=== PATIENT | male | born 1935 | race Caucasian/White ===

== ENCOUNTER 2016-12-29 10:44 | Inpatient (IN) | payer OTHER ==
[~2016-12-29] VITALS: Ht 180.3 cm; Wt 65.8 kg
--- NOTE | ~2016-12-29 | EKG ---
[address] [place] [address] ELECTROCARDIOGRAM REPORT Name: MANDIE HILL Room #: 543-P ADM IN M.R.#: [id number] Admission: 12/29/16 Attend Phys: Clark Faulkner MD Discharge: Date of : 37 Report #: [id number] THIS REPORT FOR: //name// [facility] Test Date: 2016-12-30 Test Time: 08:04:01 Pat Name: MANDIE HILL Department: Room: 543 P Gender: M Project Controls Specialist: Vernon MOE : 1935 Requested By: Dorys Carvalho Order Number: [id number] MD: Augustine Diaz Measurements Intervals [place] Rate: 53 P: 66 ND: 184 QRS: 65 QRSD: 110 T: QT: 461 QTc: 433 Interpretive Statements Sinus rhythm LVH with IVCD and secondary repol abnrm Anterior ST elevation, probably due to LVH Compared to ECG 03/28/2014 10:42:06 Intraventricular conduction delay now present ST (T wave) deviation now present Sinus bradycardia no longer present Sinus arrhythmia no longer present Myocardial infarct finding no longer present Electronically Signed On 12-30-2016 8:56:39 CDT by Augustine Diaz [email or web address] <ELECTRONICALLY SIGNED> By: Augustine Diaz MD 12/30/1656 3 3 Augustine Diaz MD /EPI
--- NOTE | ~2016-12-29 | 2DMMODE ---
[facility] [address] [place] [address] 2 D/M-MODE ECHOCARDIOGRAM Name: MANDIE HILL Room #: 543-P ADM IN .R.#: [id number] Admission: 12/29/16 Attend Phys: Miguel Han Discharge: Date of : 37 Date of Service: 12/31/16 1025 Report #: [id number] THIS REPORT FOR: //name// APPROVED REPORT Study performed: 12/31/2016 09:32:28 EXAM: Comprehensive 2D, Doppler, and color-flow Echocardiogram Patient Location: Echo lab Room #: [facility] Status: routine Other Information Study Quality: Good Indications Chest Pain Hx: CABG, AVR, HTN 2D Dimensions RVDd: 41.21 mm LVEF(%): 73.06 (>50%) IVSd: 12.27 (7-11mm) LVOT Diam: 18.76 (18-24mm) LVDd: 47.21 mm PWd: 12.20 (7-11mm) Ascending Ao: 36.99 (22-36mm) LVDs: 27.34 (25-40mm) Aortic Root: 29.77 mm Blancas's LVEF: 73.06 % Volumes Left Atrial Volume (Systole) Single Plane 4CH: 59.12 mL Single Plane 2CH: 61.16 mL LA ESV Index: 36.00 mL/m2 Aortic Valve AoV Peak Man.: 3.96 m/s AO Peak Gr.: 62.87 mmHg LVOT Max P.06 mmHg AO Mean Gr.: 38.26 mmHg AO V2 Mean: 2.96 m/s LVOT Max V: 2.00 m/s AO V2 VTI: 88.71 cm YOSELIN Vmax: 1.40 cm2 Mitral Valve E/A Ratio: 0.9 MV Decel. Time: 356.88 ms MV E Max Man.: 0.97 m/s [facility] [place] [address] 2 D/M-MODE ECHOCARDIOGRAM Name: MANDIE HILL Room #: 543-P [facility] IN ..#: [id number] Admission: 12/29/16 Attend Phys: Miguel Han Discharge: Date of : 37 Date of Service: 12/31/16 1025 Report #: [id number] MV A Man.: 1.05 m/s MV PHT: 103.50 ms IVRT: 78.43 ms Pulmonary Valve PV Peak Man.: 1.47 m/s PV Peak Gr.: 8.69 mmHg Pulmonary Vein P Vein S: 0.74 m/s P Vein D: 0.51 m/s P Vein S/D Ratio: 1.45 Tricuspid Valve TR Peak Man.: 3.04 m/s RAP Estimate: 5.00 mmHg TR Peak Gr.: 36.99 mmHg PA Pressure: 42.00 mmHg Left Ventricle The left ventricle is normal size. There is normal LV segmental wall motion. Mild concentric left ventricular hypertrophy. Left ventricular systolic function is normal. LVEF is 55-60%. Unable to assess Right Ventricle The right ventricle is normal size. The right ventricular systolic function is normal. Atria Left atrium is mildly dilated. Right atrium is mildly dilated. Aortic Valve Mechanical aortic valve is present. Size and manufacture unknown. Peak velcoity of 4.0m/s with a peak pressure gradient of 63mmHg and a mean of 38mmHg. Mild aortic regurgitation. Mitral Valve Probable mitral annuloplasty ring present Trace to mild mitral regurgitation. No evidence of mitral valve stenosis. Tricuspid Valve The tricuspid valve is normal in structure. There is mild tricuspid regurgitation. The right atrial pressure is estimated at 5 mmHg. There is moderate pulmonary hypertension with an estimated PAP of 42mmHg. [facility] [address] [place] [address] 2 D/M-MODE ECHOCARDIOGRAM Name: MANDIE HILL Room #: 543-P [facility] IN [facility]#: [id number] Admission: 12/29/16 Attend Phys: Miguel Han Discharge: Date of : 37 Date of Service: 12/31/16 1025 Report #: [id number] Pulmonic Valve The pulmonary valve is normal in structure. Trace pulmonic regurgitation. Great Vessels The aortic root is normal in size. The ascending aorta is at the upper limits of normal. IVC is normal in size and collapses >50% with inspiration. Pericardium There is no pericardial effusion. <Conclusion> Left ventricular systolic function is normal. There is normal LV segmental wall motion. LVEF 55-60%. Mechanical aortic valve is present. Size and manufacture unknown. Peak velcoity of 4.0m/s with a peak pressure gradient of 63mmHg and a mean of 38mmHg. Mild aortic regurgitation. 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 Trace to mild mitral regurgitation. Pulmonary artery pressure of 43mmHg There is no pericardial effusion. <ELECTRONICALLY SIGNED> By: Gurmeet Cantu MD, FACC 12/31/16 1025 1025 1025 Gurmeet Cantu MD, FACC /INF
[~2016-12-29 10:44] MED LIST: APAP500 PO; ASPIR 8181 MG PO; B-121000 MC2 PO; CALCIUM 500 +1 EAC4 PO; CALICUM 500+D1 EACH PO; CENTRUM SILVER1 EAC4 PO; COLACE100 MG PO; COUMADIN 5 MG TA5 M1 PO; DIOVAN160 MG PO; FISH OIL 1,001000 M2 PO; LEVOTHYROXIN0.025 MG PO; LIPITOR20 MG PO; NEURONTIN 300300 M1 PO; NIASPAN 500 MG500 M1 PO; NORVASC5 MG PO; PERCOCET 5-3251 EACH PO; PHILLIPS' COLO1 EACH PO; PROSCAR 5MG TABL5 MG PO; TRAZODONE HCL50 MG PO; VITRON-C TABLE1 EAC1 PO
[2016-12-29 10:45] VITALS: BP 116/58
[2016-12-29 11:20] LABS: HEMATOCRIT 30.5 % (42.0-52.0); HEMOGLOBIN 10.5 gm/dL (14.0-18.0); MCH 32.3 pg (26.0-34.0); MCHC 34.3 g/dL (28.0-37.0); MCV 94.2 fL (80.0-100.0); PLATELET COUNT 192 thou/uL (150-400); RBC 3.24 mil/uL (4.50-6.00); RDW 14.2 % (10.5-14.5); WBC 4.4 thou/uL (4.0-11.0)
[2016-12-29 11:22] LABS: MANUAL DIFF YES
[2016-12-29 11:28] LABS: CREATININE 1.1 mg/dL (0.7-1.3); POTASSIUM 4.4 mmol/L (3.5-5.1)
[2016-12-29 11:36] LABS: INR 2.1; PROTIME 21.7 Seconds (9.3-11.4)
[2016-12-29 11:38] LABS: APTT 90.7 Seconds (24.5-32.8)
[2016-12-29 11:59] LABS: ABSOLUTE NEUTROPHILS 3.3 thou/uL (1.4-8.2); TOTAL CELL COUNT 100
[2016-12-29 12:00] LABS: ANISOCYTOSIS SLIGHT
[2016-12-29 13:12] VITALS: BP 140/62
[2016-12-29 13:20] VITALS: BP 175/59
[2016-12-29 13:35] VITALS: BP 175/59
[2016-12-29 19:05] VITALS: BP 136/59
[2016-12-29 19:52] LABS: INR 2.2
[2016-12-29 23:34] VITALS: BP 141/60
[2016-12-30 03:44] VITALS: BP 129/60
[2016-12-30 05:38] LABS: PROTIME 20.7 Seconds (9.3-11.4)
[2016-12-30 07:05] VITALS: BP 114/57
[2016-12-30 16:59] VITALS: BP 120/65
[2016-12-30 19:55] VITALS: BP 114/52
[2016-12-31 03:45] VITALS: BP 110/58
[2016-12-31 04:41] VITALS: BP 147/68
[2016-12-31 06:17] LABS: INR 1.6; PROTIME 16.3 Seconds (9.3-11.4)
[2016-12-31 07:16] VITALS: BP 146/57
[2016-12-31] MEDS ORDERED: HYDROCODON-ACE1 EAC7 PO (15:46)
[2016-12-31 16:12] VITALS: BP 146/57
== END 2016-12-31 17:49 | disposition home or self-care (01) | DRG 565 ==
LOC: ER 10:44 → 5S 11:47 → EROBS 11:47 → 5S 12:20
PROVIDERS: Emergency Medicine; Nurse Practitioner Gerontology
PROC: 0S9C3ZZ Drainage of Right Knee Joint, Percutaneous Approach (ICD-10-PCS; principal; 2016-12-30)
DX: M25.461 Effusion, right knee (principal); M25.061 Hemarthrosis, right knee; M17.11 Unilateral primary osteoarthritis, right knee; I10 Essential (primary) hypertension; I25.10 Atherosclerotic heart disease of native coronary artery without angina pectoris; D64.9 Anemia, unspecified; R00.1 Bradycardia, unspecified; Z95.1 Presence of aortocoronary bypass graft; Z95.2 Presence of prosthetic heart valve; Z90.49 Acquired absence of other specified parts of digestive tract; Z79.01 Long term (current) use of anticoagulants; Z79.899 Other long term (current) drug therapy
CPT/HCPCS: 10086

== ENCOUNTER 2017-03-24 16:23 | Inpatient (IN) | payer OTHER ==
[~2017-03-24] VITALS: Ht 180.3 cm; Wt 64.4 kg
--- NOTE | ~2017-03-24 | HC ---
[facility] [place] [address] CONSULTATION Name: MANDIE HILL Nikia Room #: 408-P [facility] IN ..#: [id number] Admission: 03/24/17 Attend Phys: Adams Shaikh MD Discharge: Date of : 36 Report #: [id number] THIS REPORT FOR: //name// CC: Dread Shaikh DATE OF SERVICE: 03/25/2017 This 81-year-old gentleman is admitted with right knee pain with findings consistent with an acute traumatic hemarthrosis. I know him from previous visits and know that he has chronic degenerative arthritis involving the right knee. He is also on chronic Coumadin therapy. We visited a number of months ago with sudden knee effusion and he was found to have a hemarthrosis, which required several aspirations for complete resolution. His symptoms improved with cortisone injection. He returned to his home where he has been living independently with assistance from his daughter. 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 He did not have any falls or injuries, but later that evening experienced increased knee discomfort followed by swelling. This became more severe and he was admitted to the hospital. Today, there is an obvious right knee effusion with tenderness, but no significant redness or warmth. There is no sign of infection. There is no evidence of instability. The knee moves well, but is uncomfortable. Findings are certainly consistent with an acute hemarthrosis. I think this is simply a new knee sprain with anticoagulation-related bleeding and hemarthrosis. I elected to go ahead with aspiration. This was accomplished, but with limited return as there seemed to be significant clotting of the hemarthrosis fluid. I removed only about 20 mL and I suspect there is another 40-60 mL in the knee joint. After removing as much as I could, I did leave 80 mg of Depo-Medrol and 5 mL of lidocaine in the joint as this was helpful with the same situation in the past. At this point, I am uncertain if this limited aspiration will be sufficient to relieve his symptoms. I think we will monitor him overnight. If he should have significant ongoing pain then a more aggressive lavage in the operating room under sedation might be necessary. We will leave him n.p.o. after midnight and reassess his progress in the morning. If his symptoms will allow, then he could be discharged home and I can simply see him in the office next week for a followup evaluation and further aspiration if needed. If his symptoms will not allow, then we may reconsider the option of an OR debridement as needed. <ELECTRONICALLY SIGNED> By: Diego Solo MD 03/27/17 1105 1740 2235 Diego Solo MD /nt
[~2017-03-24 16:23] MED LIST changes: +HYDROCODON-ACE1 EAC7 PO
[2017-03-24 16:26] VITALS: BP 147/63
[2017-03-24] MEDS ORDERED: NORVASC2.5 MG PO (16:47)
[2017-03-24] MEDS ORDERED: BAYER CHEWABLE81 MG PO (16:52)
[2017-03-24] MEDS ORDERED: LOPERAMIDE 2 MG2 M1 PO (16:53)
[2017-03-24] MEDS ORDERED: COUMADIN 5 MG TA5 M1 PO ×2 (16:56→16:57)
[2017-03-24] MEDS ORDERED: FLOMAX0.4 MG PO (17:01)
[2017-03-24 18:30] LABS: ABSOLUTE NEUTROPHILS 3.8 thou/uL (1.4-8.2); BASOPHILS 0.4 % (0.0-2.0); EOSINOPHILS 0.9 % (0.0-3.0); HEMATOCRIT 30.2 % (42.0-52.0); HEMOGLOBIN 10.5 gm/dL (14.0-18.0); LYMPHOCYTES 14.3 % (24.0-44.0); MCH 32.6 pg (26.0-34.0); MCHC 34.7 g/dL (28.0-37.0); MONOCYTES 10.7 % (1.0-8.0); PLATELET COUNT 144 thou/uL (150-400); POLYS 73.7 % (36.0-66.0); RBC 3.21 mil/uL (4.50-6.00); RDW 15.8 % (10.5-14.5); WBC 5.2 thou/uL (4.0-11.0)
[2017-03-24 18:32] LABS: MANUAL DIFF NO
[2017-03-24 18:40] LABS: INR 1.9; PROTIME 19.4 Seconds (9.3-11.4)
[2017-03-24 18:50] LABS: CALCIUM 7.8 mg/dL (8.5-10.1); CREATININE 0.8 mg/dL (0.7-1.3); POTASSIUM 4.6 mmol/L (3.5-5.1)
[2017-03-24 18:56] LABS: ALBUMIN 3.2 g/dL (3.4-5.0); TOTAL BILIRUBIN 0.6 mg/dL (<0.1-1.0); TOTAL PROTEIN 6.9 g/dL (6.4-8.2)
[2017-03-24 21:01] VITALS: BP 148/71
[2017-03-24 21:08] VITALS: BP 148/71
[2017-03-24 21:41] VITALS: BP 154/71
[2017-03-25 04:00] VITALS: BP 112/46
[2017-03-25 05:10] LABS: HEMATOCRIT 27.1 % (42.0-52.0); HEMOGLOBIN 9.1 gm/dL (14.0-18.0); MCH 31.9 pg (26.0-34.0); MCHC 33.7 g/dL (28.0-37.0); MCV 94.6 fL (80.0-100.0); RBC 2.86 mil/uL (4.50-6.00); RDW 15.8 % (10.5-14.5); WBC 5.4 thou/uL (4.0-11.0)
[2017-03-25 05:20] LABS: CALCIUM 8.6 mg/dL (8.5-10.1); POTASSIUM 4.2 mmol/L (3.5-5.1)
[2017-03-25 05:21] LABS: INR 1.7
[2017-03-25 08:00] VITALS: BP 123/51
[2017-03-25 16:00] VITALS: BP 110/51
[2017-03-25 20:14] VITALS: BP 136/68
[2017-03-25 22:15] VITALS: BP 128/68
[2017-03-26 04:43] VITALS: BP 133/72
[2017-03-26 08:00] VITALS: BP 125/69
[2017-03-26 10:09] VITALS: BP 114/58
[2017-03-26 16:45] VITALS: BP 93/51
[2017-03-26 20:00] VITALS: BP 111/44
[2017-03-27 04:00] VITALS: BP 136/50
[2017-03-27 06:21] LABS: INR 2.3; PROTIME 23.5 Seconds (9.3-11.4)
[2017-03-27 08:00] VITALS: BP 127/49
[2017-03-27 11:29] VITALS: BP 127/49
[2017-03-27] MEDS ORDERED: HYDROCODON-ACE1 EAC7 PO (12:10)
[2017-03-27 12:28] VITALS: BP 127/49
[2017-03-27 14:00] VITALS: BP 127/49
== END 2017-03-27 14:00 | disposition home health service (06) | DRG 565 ==
LOC: ER 16:23 → EROBS 20:48 → 4N 20:48
PROVIDERS: Hospitalist; Physician Assistant
DX: M25.461 Effusion, right knee (principal); M25.061 Hemarthrosis, right knee; I10 Essential (primary) hypertension; I25.10 Atherosclerotic heart disease of native coronary artery without angina pectoris; M17.11 Unilateral primary osteoarthritis, right knee; E78.5 Hyperlipidemia, unspecified; Z95.2 Presence of prosthetic heart valve; Z90.49 Acquired absence of other specified parts of digestive tract; Z95.1 Presence of aortocoronary bypass graft; Z79.899 Other long term (current) drug therapy; Z79.01 Long term (current) use of anticoagulants
CPT/HCPCS: 10091

== ENCOUNTER 2017-04-02 13:25 | Inpatient (IN) | payer OTHER ==
[~2017-04-02] VITALS: Ht 180.3 cm; Wt 66.7 kg
[~2017-04-02 13:25] MED LIST changes: +BAYER CHEWABLE81 MG PO; +FLOMAX0.4 MG PO; +LOPERAMIDE 2 MG2 M1 PO; +NORVASC2.5 MG PO
[2017-04-02 13:26] VITALS: BP 164/68
[2017-04-02 15:42] LABS: HEMATOCRIT 31.7 % (42.0-52.0); HEMOGLOBIN 10.7 gm/dL (14.0-18.0); MCH 31.5 pg (26.0-34.0); MCHC 33.6 g/dL (28.0-37.0); MCV 93.6 fL (80.0-100.0); PLATELET COUNT 187 thou/uL (150-400); RBC 3.39 mil/uL (4.50-6.00); RDW 15.2 % (10.5-14.5); WBC 6.4 thou/uL (4.0-11.0)
[2017-04-02 15:43] LABS: MANUAL DIFF YES
[2017-04-02 15:49] LABS: CREATININE 1.1 mg/dL (0.7-1.3); POTASSIUM 4.1 mmol/L (3.5-5.1)
[2017-04-02 15:58] LABS: INR 1.9; PROTIME 19.2 Seconds (9.3-11.4)
[2017-04-02 16:07] LABS: ABSOLUTE NEUTROPHILS 4.9 thou/uL (1.4-8.2); TOTAL CELL COUNT 100
[2017-04-02 17:51] VITALS: BP 125/60
[2017-04-02 18:18] VITALS: BP 125/60
[2017-04-02 21:34] VITALS: BP 141/61
[2017-04-03 04:30] VITALS: BP 131/64
[2017-04-03 04:41] LABS: HEMATOCRIT 26.8 % (42.0-52.0); HEMOGLOBIN 9.3 gm/dL (14.0-18.0); MCH 32.2 pg (26.0-34.0); MCHC 34.6 g/dL (28.0-37.0); MCV 93.1 fL (80.0-100.0); PLATELET COUNT 148 thou/uL (150-400); RBC 2.88 mil/uL (4.50-6.00); WBC 5.1 thou/uL (4.0-11.0)
[2017-04-03 04:52] LABS: MANUAL DIFF YES
[2017-04-03 04:57] LABS: CALCIUM 8.6 mg/dL (8.5-10.1)
[2017-04-03 05:29] LABS: ABSOLUTE NEUTROPHILS 3.5 thou/uL (1.4-8.2); METAMYELOCYTES 1 %; TOTAL CELL COUNT 100
[2017-04-03 13:17] VITALS: BP 131/64
== END 2017-04-03 15:20 | disposition home health service (06) | DRG 554 ==
LOC: ER 13:25 → EROBS 17:05 → 4N 18:19
PROVIDERS: Family Medicine; Physician Assistant
DX: M25.061 Hemarthrosis, right knee (principal); I10 Essential (primary) hypertension; D64.9 Anemia, unspecified; M17.0 Bilateral primary osteoarthritis of knee; Z95.1 Presence of aortocoronary bypass graft; Z90.49 Acquired absence of other specified parts of digestive tract; Z95.2 Presence of prosthetic heart valve; Z79.899 Other long term (current) drug therapy
CPT/HCPCS: 10091

== ENCOUNTER 2018-04-08 20:46 | Inpatient (IN) | payer OTHER ==
[~2018-04-08] VITALS: Ht 175.3 cm; Wt 58.8 kg
--- NOTE | ~2018-04-08 | H ---
[facility] [address] HISTORY AND PHYSICAL Name: MANDIE HILL Room #: 431-P ADM IN M.R.#: [id number] Admission: 04/09/18 Attend Phys: Wilton Tran MD Discharge: Date of : 36 Report #: [id number] THIS REPORT FOR: //name// CC: Wilton Canada Alisha DATE OF SERVICE: 04/09/2018 CHIEF COMPLAINT: Right knee pain. HISTORY OF PRESENT ILLNESS: The patient is a pleasant 82-year-old male who was admitted through the Emergency Department at [facility] with complaints of right knee pain and spasm. The patient reports that the pain began around noon yesterday. He denies any recent falls or injury to the knee, but states that he has been cleaning out his garage and has been more active in the last few days that he had been previously. ALLERGIES: No known drug allergies. MEDICATIONS: Colchicine, [place], Amoxil, finasteride, valsartan, atorvastatin, cyanocobalamin, fish oil, multivitamin, Tylenol, warfarin 5 mg tabs, trazodone, amlodipine, [employer] capsule, iron, Norvasc, Imodium, Flomax. PAST MEDICAL AND SURGICAL HISTORY: Significant for anemia, open heart surgery, heart valve replacement and bypass, appendectomy, hernia repair, hypertension, right knee pain 03/2017. SOCIAL HISTORY: The patient denies any tobacco, alcohol or drug abuse. PHYSICAL EXAMINATION: GENERAL: The patient is awake and alert, in no acute distress. VITAL SIGNS: Temperature 36.4, pulse 56, blood pressure 137/56, height 175 cm, weight 58 kilos. EXTREMITIES: Right lower extremity is neurovascularly intact. Calf is soft and nontender. There is a moderate knee effusion present. Tenderness to palpation medial and lateral joint lines. Pain with attempted passive range of motion of the knee. Passive range of motion is minus 20-60 degrees. IMAGING: Three views of the right knee performed on 04/08/2018 showed knee joint arthrosis with suprapatellar joint effusion and swelling. No acute fracture or dislocation. IMPRESSION: Right knee pain, hemarthrosis, osteoarthritis. PLAN: Discussed the patient's diagnosis and treatment options today. The patient reports that he has been seen several times in the past for right knee [address] [address] HISTORY AND PHYSICAL Name: MANDIE HILL Nikia Room #: 431-P [facility] IN ..#: [id number] Admission: 04/09/18 Attend Phys: Wilton Tran MD Discharge: Date of : 36 Report #: [id number] pain and swelling from Dr. Solo and passes received aspirations, which have provided significant improvement of his pain for a period of time. He has elected to proceed with right knee aspiration today. We discussed that with more persistent symptoms, I would have a followup on an outpatient basis with either myself or Dr. Solo. We also discussed that we could send the patient's fluid to the lab for analysis if it looked questionable. However, as he has had several aspirations of hemarthrosis in the past, I am suspicious that is probably what is causing his swelling today since he is also on chronic warfarin. With this knowledge, I discussed with the patient and we decided to hold off on sending the fluid if this looked like a normal hemarthrosis. PROCEDURE PERFORMED: After informed consent was given, the right knee was sterilely prepped with Betadine. 4 mL of 1% lidocaine was used for local anesthesia prior to the aspiration. An 18-gauge needle was used to aspirate the right knee. Approximately, 20 mL of sanguineous fluid was aspirated from the knee. This appears to be hemarthrosis. No cloudiness was noted. The patient tolerated the procedure poorly; due to the patient's motion during the bedside procedure, I was unable to completely aspirate the knee and some effusion remained at the end of the aspiration, but aspiration was discontinued due to the patient's pain. Following the aspiration, the patient's pain improved, although he does not notice much improvement of his pain following the procedure compared to before. We discussed that with more persistent symptoms, I would like to have him follow up with Dr. Solo on an outpatient basis sometime next week. We discussed that an additional aspiration could be attempted and we could further discuss other potential treatment options at that time. The patient verbalizes understanding. By: 1259 1333 JOSE Pruitt /pat
[~2018-04-08 20:46] MED LIST changes: +AMOXICILLIN875 MG PO; +CARDIOTAB; +COLCHICINE0.6 MG PO; +FINASTERIDE5 MG PO; +HYDROCODONE-AP1 EAC6 PO; +LIPITOR 20 MG T20 M1 PO; +NORCO 5-325 TA1 EACH PO; +VALSARTAN160 MG PO
[2018-04-08 20:47] VITALS: BP 153/97
[2018-04-08] MEDS ORDERED: ULTRAM 50MG TAB50 MG PO (23:08)
[2018-04-09 06:41] VITALS: BP 137/56
[2018-04-09 06:51] VITALS: BP 137/56
[2018-04-09 20:00] VITALS: BP 125/60
[2018-04-10 04:30] VITALS: BP 146/62
[2018-04-10 06:56] LABS: HEMATOCRIT 23.9 % (42.0-52.0); HEMOGLOBIN 8.1 gm/dL (14.0-18.0); MCH 31.8 pg (26.0-34.0); MCHC 33.7 g/dL (28.0-37.0); MCV 94.3 fL (80.0-100.0); RBC 2.53 mil/uL (4.50-6.00); RDW 16.4 % (10.5-14.5); WBC 6.4 thou/uL (4.0-11.0)
[2018-04-10 07:14] LABS: ALBUMIN 2.8 g/dL (3.4-5.0); CALCIUM 9.1 mg/dL (8.5-10.1); CREATININE 1.1 mg/dL (0.7-1.3); TOTAL BILIRUBIN 0.7 mg/dL (<0.1-1.0); TOTAL PROTEIN 7.2 g/dL (6.4-8.2)
[2018-04-10 08:00] VITALS: BP 128/56
[2018-04-10] MEDS ORDERED: FLOMAX0.4 MG PO (10:41)
[2018-04-10 11:49] VITALS: BP 128/56
== END 2018-04-10 13:12 | disposition home or self-care (01) | DRG 557 ==
LOC: ER 20:46 → 4E 04-09 01:09 → EROBS 04-09 01:09 → 4S 04-09 08:13 → 4E 04-09 08:28 → ENTRNSPT 04-10 12:06 → EDTRNSPTSTS 04-10 12:10 → 4E 04-10 13:12
PROVIDERS: Hospitalist
PROC: 2W3QX1Z Immobilization of Right Lower Leg using Splint (ICD-10-PCS; principal; 2018-04-09)
PROC: 0S9C3ZZ Drainage of Right Knee Joint, Percutaneous Approach (ICD-10-PCS; principal; 2018-04-09)
DX: M70.41 Prepatellar bursitis, right knee (principal); E43 Unspecified severe protein-calorie malnutrition; M25.061 Hemarthrosis, right knee; E46 Unspecified protein-calorie malnutrition; Z68.1 Body mass index [BMI] 19.9 or less, adult; I10 Essential (primary) hypertension; M25.361 Other instability, right knee; M17.11 Unilateral primary osteoarthritis, right knee; M25.461 Effusion, right knee; D64.9 Anemia, unspecified; E53.8 Deficiency of other specified B group vitamins; N40.0 Benign prostatic hyperplasia without lower urinary tract symptoms; Z95.2 Presence of prosthetic heart valve; Z90.49 Acquired absence of other specified parts of digestive tract; Z79.82 Long term (current) use of aspirin; Z79.899 Other long term (current) drug therapy; Z95.1 Presence of aortocoronary bypass graft; Z79.01 Long term (current) use of anticoagulants
CPT/HCPCS: 10084

== ENCOUNTER 2018-05-07 13:38 | Inpatient (IN) | payer OTHER ==
[~2018-05-07] VITALS: Ht 180.3 cm; Wt 62.6 kg
--- NOTE | ~2018-05-07 | HC ---
[facility] [place] [address] CONSULTATION Name: MANDIE HILL Nikia Room #: 353-P [facility] IN ..#: [id number] Admission: 05/07/18 Attend Phys: Adams Shaikh MD Discharge: 05/12/18 Date of : 36 Report #: [id number] THIS REPORT FOR: //name// CC: FAM unknown Adams Shaikh HISTORY OF PRESENT ILLNESS: This is a known patient of Dr. Mikel Ya who was admitted following a fall. He has a known history of prior autoimmune hemolytic anemia, for which he received Rituxan [address] Ya and was scheduled to see him again today. PAST MEDICAL HISTORY: Significant for previous aortic valve surgery with ongoing anticoagulation. He has difficulties with altered mental state and presumed dementia, as well as gait instability associated with his recent fall. ALLERGIES: None known. MEDICATIONS: As listed on the MFR. FAMILY HISTORY: Noncontributory. SOCIAL HISTORY: He is a nondrinker, nonsmoker. He has a who was present. REVIEW OF SYSTEMS: Positive for bruising related to longstanding warfarin therapy and trauma/falls. He denies any sweats, chills, fevers or weight loss. PHYSICAL EXAMINATION: GENERAL: Shows him to be alert, but a poor historian. HEENT: Shows him to be normocephalic with eye glasses. His mouth is clear. NECK: Supple. CHEST: Clear. CARDIOVASCULAR: Shows mechanical click. ABDOMEN: Shows no palpable spleen. EXTREMITIES: No clubbing, cyanosis. SKIN: Shows scattered bruising throughout. He has no edema. NEUROLOGIC: No focal localizing signs. PSYCHIATRIC: Not agitated or confused. LYMPHATICS: No palpable supraclavicular adenopathy. LABORATORY STUDIES: Reviewed and do show him to have ongoing normochromic normocytic anemia. In review of at records, his serum iron is low and his current retics are not elevated. ASSESSMENT: Multifactorial anemia. PLAN: The patient has received Rituxan, remains on prednisone and as discussed with Dr. Haynes, feels that his anemia is multifactorial, as he does not have [facility] [address] [place] [address] CONSULTATION Name: MANDIE HILL Room #: 353-P [facility] IN [facility]#: [id number] Admission: 05/07/18 Attend Phys: Adams Shaikh MD Discharge: 05/12/18 Date of : 37 Report #: [id number] elevated retic count, indicating an adequate erythropoiesis. I would suggest checking a soluble transferrin receptor, as his serum ferritin level was normal. Also, we would repeat an indirect and direct [place], plasma free hemoglobin, erythropoietin level and stools for occult blood. Thanks for notifying us of his hospitalization and Dr. Ya will see him in further followup. By: 1712 0043 Karen Ingram MD /nt
--- NOTE | ~2018-05-07 | EKG ---
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 : 1935 Requested By: Mimi Rodriguez Order Number: [id number] MD: Gurmeet Cantu Measurements Intervals [place] Rate: 80 P: 84 TN: 162 QRS: 10 QRSD: 150 T: 149 QT: 422 QTc: 487 Interpretive Statements Sinus rhythm Atrial premature complexes Probable left atrial enlargement Left bundle branch block Compared to ECG 04/27/2017 04:06:59 Atrial premature complex(es) now present Electronically Signed On 05-08-2018 8:32:57 ASSISTANT TEACHER PRIMARY by Gurmeet Cantu [email or web address] <ELECTRONICALLY SIGNED> By: Gurmeet Cantu MD, [facility] 05/08/18 0832 1403 1403 Gurmeet Cantu MD, [facility] /EPI
--- NOTE | ~2018-05-07 | 2DMMODE ---
[facility] [place] [address] 2 D/M-MODE ECHOCARDIOGRAM Name: MANDIE HILL Room #: 353-P [facility] IN [facility]#: [id number] Admission: 05/07/18 Attend Phys: Adams Shaikh MD Discharge: Date of : 37 Date of Service: 05/12/18 1015 Report #: [id number] THIS REPORT FOR: //name// APPROVED REPORT Study performed: 05/12/2018 07:59:57 EXAM: Comprehensive 2D, Doppler, and color-flow Echocardiogram Patient Location: Bedside Room #: 353 Status: routine BSA: 1.78 HR: 68 bpm BP: 127/74 mmHg Other Information Study Quality: Good Indications CVA/TIA Hypertension/HDD Mechanical AVR Echo Enhancing Agent Indication: Rule out Shunt Agent(s) / Amount(s) Used: Agitated Saline 7 cc 2D Dimensions RVDd: 38.29 mm IVSd: 11.59 (7-11mm) LVOT Diam: 20.90 (18-24mm) LVDd: 50.22 mm PWd: 12.17 (7-11mm) Ascending Ao: 31.69 (22-36mm) LVDs: 35.39 (25-40mm) Aortic Root: 29.49 mm IVC: 24.00 mm Volumes Left Atrial Volume (Systole) Single Plane 4CH: 128.28 mL Single Plane 2CH: 91.45 mL LA ESV Index: 66.00 mL/m2 Aortic Valve AoV Peak Man.: 4.20 m/s AO Peak Gr.: 70.58 mmHg LVOT Max P.17 mmHg AO Mean Gr.: 37.75 mmHg LVOT Mean P.76 mmHg AO V2 Mean: 2.85 m/s LVOT Max V: 1.14 m/s [facility] [place] [address] 2 D/M-MODE ECHOCARDIOGRAM Name: MANDIE HILL Room #: 353-P [facility] IN ..#: [id number] Admission: 05/07/18 Attend Phys: Adams Shaikh MD Discharge: Date of : 37 Date of Service: 05/12/18 1015 Report #: [id number] V2 VTI: 93.46 cm LVOT Mean V: 0.76 m/s YOSELIN (VTI): 1.00 cm2 LVOT V1 VTI: 27.24 cm YOSELIN Vmax: 0.93 cm2 SV (LVOT): 93.37 mL Mitral Valve MV Peak Gr.: 10.27 mmHg MV Mean Gr.: 4.80 mmHg E/A Ratio: 1.0 MV Decel. Time: 293.53 ms MV E Max Man.: 1.65 m/s MV A Man.: 1.60 m/s MV Max Man.: 1.60 m/s MV Mean Man.: 1.02 m/s MV VTI: 574.08 mm MVA VTI: 162.65 mm2 MV PHT: 89.28 ms MVA (PHT): 2.46 cm2 IVRT: 69.20 ms Pulmonary Valve PV Peak Man.: 1.47 m/s PV Peak Gr.: 8.59 mmHg Pulmonary Vein P Vein S: 0.74 m/s P Vein A: 0.22 m/s P Vein D: 0.46 m/s P Vein A Dur.: 143.0 msec P Vein S/D Ratio: 1.61 Tricuspid Valve TR Peak Man.: 3.15 m/s TR Peak Gr.: 39.76 mmHg PA Pressure: 49.00 mmHg Left Ventricle The left ventricle is normal size. There is normal LV segmental wall motion. Mild concentric left ventricular hypertrophy. The left ventricular systolic function is normal. The left ventricular ejection fraction is within the normal range. LVEF is 50-55%. The left ventricular diastolic function is abnormal. Right Ventricle The right ventricle is normal size. The right ventricular systolic function is normal. Atria Left atrium is dilated. Interatrial septum is intact without evidence of ASD or PFO. Right atrium is dilated. [facility] [address] [place] [address] 2 D/M-MODE ECHOCARDIOGRAM Name: MANDIE HILL Nikia Room #: 353-P [facility] IN M.R.#: [id number] Admission: 05/07/18 Attend Phys: Adams Shaikh MD Discharge: Date of : 37 Date of Service: 05/12/18 1015 Report #: [id number] Aortic Valve Mechanical aortic valve is present. 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 Mitral Valve Moderate mitral annular calcification, mildly thickened leaflets. Possible mitral annuloplasty ring Mild mitral regurgitation. Mild mitral stenosis. Tricuspid Valve The tricuspid valve is normal in structure. There is mild tricuspid regurgitation. Estimated PAP 49 mmHg. There is moderate pulmonary hypertension. Pulmonic Valve The pulmonary valve is normal in structure. Trace pulmonic regurgitation. Great Vessels The aortic root is normal in size. IVC is dilated and collapses <50% with inspiration. Pericardium There is no pericardial effusion. <Conclusion> The left ventricular systolic function is normal. There is normal LV segmental wall motion. LVEF 50-55%. Left atrium is dilated. No shunting by contrast bubble injection. Mechanical aortic valve is present. 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 Mild aortic regurgitation. Moderate mitral annular calcification, mildly thickened leaflets. Possible mitral annuloplasty ring Mild mitral regurgitation. There is mild tricuspid regurgitation. Estimated pulmonary artery pressure of 49 mmHg. There is no pericardial effusion. <ELECTRONICALLY SIGNED> By: Gurmeet Cantu MD, FACC 05/12/18 1015 14 Gurmeet Cantu MD, FACC /INF
--- NOTE | ~2018-05-07 | HC ---
[facility] [place] [address] CONSULTATION Name: HILLMANDIE Nikia Room #: 353-P [facility] IN ..#: [id number] Admission: 05/07/18 Attend Phys: Adams Shaikh MD Discharge: Date of : 36 Report #: [id number] THIS REPORT FOR: //name// CC: FAM unknown Adams Shaikh DATE OF SERVICE: 05/08/2018 HISTORY OF PRESENT ILLNESS: The patient is an 82-year-old male who was admitted with increased confusion, multiple falls. He was diagnosed with an encephalopathy. He does have some premorbid dementia, but has been living in the community with his . He has had problems with the recurrent falls. His Flexeril was stopped. He had a prior history of some right knee pain and spasm and was diagnosed with an acute bursitis, prepatellar approximately a month prior. He still has some discomfort, but it is overall improved. The Flexeril has been stopped. He has problems with confusion and gait instability and we are seeing him in rehabilitation medicine consultation. PAST MEDICAL HISTORY: Includes open heart surgery in 1999, valve replacement and bypass, history of appendectomy, hernia repair, right knee pain as noted above 03/29/2018, history of lupus. ALLERGIES: No known drug allergies. MEDICATIONS: Please see the full medication listing. Include vitamins, herbals, and supplements. FAMILY HISTORY: Noncontributory. HABITS: No history of tobacco or alcohol abuse. SOCIAL HISTORY: Lives in a house with his , was premorbidly modified independent with a front-wheeled walker, 6 steps in. REVIEW OF SYSTEMS: No current complaints of chest pain, shortness of breath or abdominal discomfort. PHYSICAL EXAMINATION: GENERAL: An 82-year-old white male, pleasantly confused, in no obvious distress. He is uncertain why he is here. He thought he just got off an airplane. He will follow basic 1 step commands. VITAL SIGNS: Temperature 98.9, pulse 77, respirations 20, blood pressure 116/59. Nurses' notes indicate he had problems with urinary incontinence with confusion and impulsivity. HEENT: His facies appeared symmetric. EXTREMITIES: Functional range of motion of both upper extremities. Strength is [facility] [address] [place] [address] CONSULTATION Name: MANDIE HILL Room #: 353-P [facility] IN [facility] [id number] Admission: 05/07/18 Attend Phys: Adams Shaikh MD Discharge: Date of : 36 Report #: [id number] grade 3+ to 4-/5. DTRs are trace to 1. Lower extremities, no focal calf swelling, functional range of motion with strength grade 3+/5. DTRs are trace to 1. He is mod assist with sit to stand. Gait was min assist short distances with a front-wheeled walker. ASSESSMENT: An 82-year-old white male with the following problem list: 1. Encephalopathy. 2. Recurrent falls with gait instability. 3. History of right knee pain/bursitis in the recent past. Internal Medicine stopped his Flexeril. 4. Premorbid dementia, nevertheless living in the community. 5. History of mechanical aortic valve replacement. 6. Coronary artery disease. 7. Hypertension. 8. Hyperlipidemia. PLAN: Therapy evaluations are underway. We will be glad to follow along with you regarding his rehab therapy needs. I am uncertain if he will qualify for an acute in-hospital inpatient rehabilitation stay, but we will be glad to follow along with you. By: 1230 0050 Diego Cardona MD /PMT
--- NOTE | ~2018-05-07 | HC ---
[facility] [place] [address] CONSULTATION Name: MANDIE HILL Niika Room #: 353-P ADM IN ..#: [id number] Admission: 05/07/18 Attend Phys: Adams Shaikh MD Discharge: Date of : 36 Report #: [id number] THIS REPORT FOR: //name// CC: FAM unknown Adams Shaikh DATE OF SERVICE: 05/11/2018 HISTORY OF PRESENT ILLNESS: This is an 82-year-old male patient who was evaluated by me for a stroke demonstrated on MRI. The patient was discussed with admitting physician, Dr. Haynes before and after seeing the patient. The patient is not a very good historian. I reviewed the patient's records and talked to him some. It looks like this patient has been falling down repeatedly. He has multiple bruises on his body and reviewing the record from Emergency Room physician, it looks like he has fallen down multiple times. He was given some narcotic and apparently, he has some confusion. He indicates that he lives with his . He is able to do most of the activities of daily living, but the record from Emergency Room indicates that this patient's daughter was interviewed that time and she has indicated that the patient has been increasingly difficult to be handled at home. He has fallen down and he has hit his head. REVIEW OF SYSTEMS: Indicates that he had open heart surgery in 1999. He has a valve replacement, which requires anticoagulation according to him. 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 One of the notes says that he has a history of lupus. He is anemic. He has a history of hypertension. He does have joint pain, but it is not clear if he has gout or not. That was his relevant 14-point review of systems. FAMILY HISTORY: Negative for any seizure and the falls occur because of mechanical fall. SOCIAL HISTORY: He does not smoke or drink any alcohol. FAMILY HISTORY: Negative for any early age stroke. PHYSICAL EXAMINATION: Indicates that this patient is alert, responsive. He can tell me what month it is and what day it is. He is sleepy, but he wakes up. His memory and fund of knowledge is poor. Cranial nerve examination 2-12 looks mostly unremarkable. He looks weak in both lower extremities, in fact he is weak in generalized fashion. He has multiple bruises. He has good position sense in both lower extremities. His reflexes appear to be intact. His knee looks swollen on the right side. He complained of pain in the right leg when I move it. His cardiac examinations indicate artificial valve and scar there. No respiratory difficulty or rhonchi. Pulses are difficult to feel. Blood pressure is 121/68, respiration is 18, pulse is 66 and temperature is 97.6. [facility] [address] [place] [address] CONSULTATION Name: MANDIE HILL Nikia Room #: 353-P [facility] IN .R.#: [id number] Admission: 05/07/18 Attend Phys: Adams Shaikh MD Discharge: Date of : 36 Report #: [id number] LABORATORY DATA: His hemoglobin is 7.6. His BUN and creatinine is normal. His last B12 was normal. IMPRESSION: 1. Abnormal MRI. It does show a small lacunar cerebrovascular accident. That will require further workup, especially because he was not optimally anticoagulated when he came in and he has an artificial valve. Even more important finding is that he does appear to have chronic microbleeds there. They have raised the possibility of amyloid angiopathy, but he has to be on anticoagulation because of his valve. That makes it very difficult situation. That small lacunar cerebrovascular accident and chronic microbleeds are incidental finding, which has nothing to do with his symptoms, but need to be addressed. The management of that is extremely difficult. 2. One of the records states that he has a question of lupus and at one time, his sed rate was more than 100. If that is the case, that may be contributing to his problem. 3. It will be desirable to rule out the possibility of pelvic hematoma because he is on anticoagulation and has been falling down, but his anticoagulation was not even therapeutic when he came in. 4. He has severe lumbar spondylosis, which is contributing to symptoms at least. Once again that problem need to be addressed by neurosurgeon or pain management, but none of them comes here. RECOMMENDATIONS: 1. Repeat sed rate. 2. We will go ahead and do an MRI of the lumbar spine and some workup for CVA, especially because he has an artificial valve. 3. PT, OT. 4. He needs multiple other evaluations by multiple other consultants, but unfortunately many of them do not come here. I have discussed that with the patient in detail and I talked to Dr. Haynes in detail. By: 1452 1658 Nitin Mack MD /nt
[2018-05-07 13:38] VITALS: BP 141/56
[~2018-05-07 13:38] MED LIST changes: +ULTRAM 50MG TAB50 MG PO
[2018-05-07 14:11] LABS: ABSOLUTE NEUTROPHILS 7.3 thou/uL (1.4-8.2); BASOPHILS 0.2 % (0.0-2.0); EOSINOPHILS 0.2 % (0.0-3.0); HEMOGLOBIN 9.7 gm/dL (14.0-18.0); LYMPHOCYTES 3.3 % (24.0-44.0); MCH 33.2 pg (26.0-34.0); MCHC 34.6 g/dL (28.0-37.0); MCV 95.9 fL (80.0-100.0); MONOCYTES 7.1 % (1.0-8.0); PLATELET COUNT 137 thou/uL (150-400); POLYS 89.2 % (36.0-66.0); RBC 2.92 mil/uL (4.50-6.00); WBC 8.2 thou/uL (4.0-11.0)
[2018-05-07 14:20] LABS: ANION GAP 7 mmol/L (7-16); BUN 43 mg/dL (7-18); CALCIUM 8.9 mg/dL (8.5-10.1); CHLORIDE 100 mmol/L (98-107); CO2 31 mmol/L (21-32); CREATININE 1.1 mg/dL (0.7-1.3); GLUCOSE 117 mg/dL (74-106); POTASSIUM 3.8 mmol/L (3.5-5.1); SODIUM 138 mmol/L (136-145)
[2018-05-07 14:26] LABS: APTT 56.2 Seconds (24.5-32.8); PROTIME 20.9 Seconds (9.3-11.4)
[2018-05-07 14:29] LABS: TROPONIN-I <0.06 ng/mL (<0.06)
[2018-05-07 15:29] LABS: URINE BILIRUBIN NEGATIVE (Negative); URINE BLOOD 2+ (Negative); URINE CLARITY CLEAR; URINE COLOR YELLOW; URINE GLUCOSE-RANDOM* NEGATIVE (Negative); URINE KETONES NEGATIVE (Negative); URINE LEUKOCYTES-REFLEX NEGATIVE (Negative); URINE NITRITE-REFLEX NEGATIVE (Negative); URINE PROTEIN (DIPSTICK) 1+ (Negative); URINE SPECIFIC GRAVITY 1.015 (1.005-1.035); URINE UROBILINOGEN 0.2 E.U./dl (0.2-1.0)
[2018-05-07 15:35] LABS: CASTS None Seen /LPF (None Seen); CRYSTALS None Seen /LPF (None Seen); SQUAMOUS None Seen /LPF (0-3); URINE RBC 0-2 Rare /HPF (0-2); URINE WBC-REFLEX None Seen /HPF (0-5)
[2018-05-07 15:36] LABS: BACTERIA-REFLEX 1-9 Few /HPF (None Seen)
[2018-05-07 18:07] VITALS: BP 141/56
[2018-05-07 19:04] VITALS: BP 127/90
[2018-05-08 04:20] VITALS: BP 114/52
[2018-05-08 05:33] LABS: HEMATOCRIT 25.4 % (42.0-52.0); HEMOGLOBIN 8.8 gm/dL (14.0-18.0); MCH 33.1 pg (26.0-34.0); MCHC 34.6 g/dL (28.0-37.0); MCV 95.4 fL (80.0-100.0); RBC 2.66 mil/uL (4.50-6.00); RDW 15.8 % (10.5-14.5); WBC 9.4 thou/uL (4.0-11.0)
[2018-05-08 05:44] LABS: INR 1.6; PROTIME 16.8 Seconds (9.3-11.4)
[2018-05-08 05:55] LABS: CALCIUM 8.3 mg/dL (8.5-10.1); CREATININE 0.9 mg/dL (0.7-1.3); POTASSIUM 3.9 mmol/L (3.5-5.1)
[2018-05-08 08:15] VITALS: BP 116/59
[2018-05-08 13:22] VITALS: BP 107/64
[2018-05-08 16:13] VITALS: BP 110/56
[2018-05-08 19:30] VITALS: BP 112/62
[2018-05-09 04:20] VITALS: BP 112/80
[2018-05-09 05:42] LABS: HEMATOCRIT 21.6 % (42.0-52.0); HEMOGLOBIN 7.5 gm/dL (14.0-18.0); MCH 33.3 pg (26.0-34.0); MCHC 34.8 g/dL (28.0-37.0); MCV 95.6 fL (80.0-100.0); RBC 2.26 mil/uL (4.50-6.00); RDW 15.6 % (10.5-14.5); WBC 9.9 thou/uL (4.0-11.0)
[2018-05-09 05:55] LABS: CALCIUM 8.3 mg/dL (8.5-10.1); INR 1.5; POTASSIUM 3.6 mmol/L (3.5-5.1); PROTIME 15.8 Seconds (9.3-11.4)
[2018-05-09 07:03] VITALS: BP 113/63
[2018-05-09 08:05] VITALS: BP 111/75
[2018-05-09 15:20] VITALS: BP 96/57
[2018-05-09 20:09] VITALS: BP 122/57
[2018-05-10 04:25] VITALS: BP 125/68
[2018-05-10 06:25] LABS: HEMATOCRIT 22.3 % (42.0-52.0); HEMOGLOBIN 7.6 gm/dL (14.0-18.0); MCH 32.5 pg (26.0-34.0); MCV 95.5 fL (80.0-100.0); OBSERVED RETIC COUNT 1.05 % (0.6-2.6); RBC 2.33 mil/uL (4.50-6.00); RDW 15.5 % (10.5-14.5); WBC 9.8 thou/uL (4.0-11.0)
[2018-05-10 06:28] LABS: INR 1.6
[2018-05-10 06:34] LABS: CALCIUM 8.6 mg/dL (8.5-10.1); POTASSIUM 3.9 mmol/L (3.5-5.1)
[2018-05-10 06:47] LABS: % SATURATION 6 % (20-39); IRON 11 ug/dL (65-175); TIBC 186 ug/dL (250-450)
[2018-05-10 07:41] VITALS: BP 127/72
[2018-05-10 16:43] VITALS: BP 104/55; BP 110/76
[2018-05-10 19:23] VITALS: BP 118/63
[2018-05-10 19:24] VITALS: BP 122/66
[2018-05-11 04:00] VITALS: BP 133/59
[2018-05-11 06:33] LABS: INR 1.8; PROTIME 19.1 Seconds (9.3-11.4)
[2018-05-11 07:46] VITALS: BP 122/69
[2018-05-11 07:47] VITALS: BP 121/68
[2018-05-11 16:24] VITALS: BP 127/71
[2018-05-11 19:30] VITALS: BP 112/55
[2018-05-12 04:20] VITALS: BP 127/74
[2018-05-12 06:34] LABS: INR 2.1; PROTIME 22.3 Seconds (9.3-11.4)
[2018-05-12 08:04] VITALS: BP 123/60
[2018-05-12 11:53] LABS: HEMATOCRIT 20.3 % (42.0-52.0); MCH 32.9 pg (26.0-34.0); MCHC 34.5 g/dL (28.0-37.0); MCV 95.5 fL (80.0-100.0); OBSERVED RETIC COUNT 1.77 % (0.6-2.6); RBC 2.12 mil/uL (4.50-6.00); RDW 15.1 % (10.5-14.5); WBC 6.3 thou/uL (4.0-11.0)
[2018-05-12 12:36] VITALS: BP 101/61
[2018-05-12] MEDS ORDERED: PREDNISONE 20 M20 MG PO (14:46)
[2018-05-12] MEDS ORDERED: MIRALAX17 GM PO (14:46)
[2018-05-12 16:30] VITALS: BP 105/60
== END 2018-05-12 20:00 | DRG 64 ==
LOC: ER 13:38 → 3W 16:09 → EROBS 16:09 → 3W 18:25
PROVIDERS: Hospitalist; Internal Medicine; Nurse Practitioner Family; Student in an Organized Health Care Education/Training Program
DX: I63.9 Cerebral infarction, unspecified (principal); E43 Unspecified severe protein-calorie malnutrition; G93.41 Metabolic encephalopathy; D58.9 Hereditary hemolytic anemia, unspecified; Z68.1 Body mass index [BMI] 19.9 or less, adult; I10 Essential (primary) hypertension; S09.90XA Unspecified injury of head, initial encounter; F03.90 Unspecified dementia, unspecified severity, without behavioral disturbance, psychotic disturbance, mood disturbance, and anxiety; I95.9 Hypotension, unspecified; E78.5 Hyperlipidemia, unspecified; M48.00 Spinal stenosis, site unspecified; I25.10 Atherosclerotic heart disease of native coronary artery without angina pectoris; M47.896 Other spondylosis, lumbar region; F15.90 Other stimulant use, unspecified, uncomplicated; M17.11 Unilateral primary osteoarthritis, right knee; E53.8 Deficiency of other specified B group vitamins; Z79.01 Long term (current) use of anticoagulants; Z95.2 Presence of prosthetic heart valve; Z90.49 Acquired absence of other specified parts of digestive tract; Z95.1 Presence of aortocoronary bypass graft; Z79.82 Long term (current) use of aspirin; Z79.899 Other long term (current) drug therapy; W18.39XA Other fall on same level, initial encounter; Y93.89 Activity, other specified; Y92.89 Other specified places as the place of occurrence of the external cause; Y99.8 Other external cause status
CPT/HCPCS: 10080

== ENCOUNTER 2018-05-12 15:17 | Inpatient (IN) | payer OTHER ==
[~2018-05-12] VITALS: Ht 175.3 cm; Wt 57.5 kg
--- NOTE | ~2018-05-12 | PATH ---
[facility] [place] [address] PATHOLOGY RPT PROCEDURE Name: MANDIE HILL Nikia Room #: 515-P ADM IN M.R.#: [id number] Admission: 05/12/18 Date of : 36 Discharge: Report #: [id number] Path Case #: [id number] [facility] Accession Number: [id number] . 01 Material submitted: . PART A: SMALL BOWEL BIOPSIES (RE IRON DEF. ANEMIA) R/O CELIAC PART B: GASTRITIS R/O H PYLORI BIOPSIES PART C: CECAL POLYP BIOPSY X2 . 01 Clinical history: . Pre-OP DX: Anemia, heme positive stools Post-OP DX: Gastritis, hiatal hernia, esophageal diverticulum, esophagitis, Schatzki's ring, cecal colon polyps, diverticulosis . 02 Diagnosis: A. Small bowel mucosa, rule out celiac, endoscopic biopsy: - No significant diagnostic abnormalities. - Negative for villous blunting or increase in intraepithelial lymphocytes. . B. Gastric mucosa, gastritis, endoscopic biopsy: - Mild chronic inflammation. - Negative for intestinal metaplasia or atrophy. - Negative for Helicobacter pylori (properly controlled immunohistochemical stain performed). . C. Polyp x 2, cecal, endoscopic biopsy: - Two fragments showing tubular adenoma. - Negative for high-grade dysplasia. (IUV:pit 05/17/2018) QTP/05/17/2018 . 02 Electronically signed: . Martha Johnson MD, Pathologist NPI- [id number] . 01 Gross description: . A. Received in formalin labeled "Mandie Hill, small bowel biopsies, rule out celiac, re iron deficiency anemia," are multiple segments of suarez soft tissue measuring 2.1 x 0.3 x 0.1 cm in aggregate dimensions. The specimen is filtered and entirely submitted in cassette A1. . B. Received in formalin labeled "Mandie Hill, gastritis, rule out H. pylori biopsies," are 4 segments of suarez soft tissue measuring 1.1 x 0.6 x 0.2 cm in aggregate dimensions and ranging from 0.3 to 0.5 cm in maximum dimension. The specimen is submitted entirely in cassette B1. . [address] [address] PATHOLOGY RPT PROCEDURE Name: MANDIE HILL Room #: 515-P [facility] IN ..#: [id number] Admission: 05/12/18 Date of : 36 Discharge: Report #: [id number] Path Case #: [id number] C. Received in formalin labeled "Hill, Mandie, cecal polyp, biopsy x2," are 2 segments of suarez soft tissue measuring 0.9 x 0.3 x 0.3 cm in aggregate dimensions and ranging from 0.4 to 0.5 cm in maximum dimension. The specimen is submitted entirely in cassette C1. (TSD; 05/16/2018) TOB/TOB . 02 Pathologist provided ICD-10: D12.0, K29.50, D64.9 . 02 CPT . 537080, 154912, 453108, X81460 Specimen Comment: A courtesy copy of this report has been sent to Specimen Comment: [phone], , . Specimen Comment: Report sent to ,DR FLORES,DR STEWART Specimen Comment: A duplicate report has been generated due to demographic updates. Performed at: [address], [place] [id number] MD David Forrest MD Phone: [phone] Performed at: [address] [id number] MD Martha Johnson MD Phone: [phone]
--- NOTE | ~2018-05-12 | PLAN ---
[facility] [place] [address] REHAB UNIT PLAN OF CARE Name: MANDIE HILL Room #: 515-P [facility] IN .R.#: [id number] Admission: 05/12/18 Attend Phys: Diego Cardona MD Discharge: 05/23/18 Date of : 36 Report #: [id number] THIS REPORT FOR: //name// CC: Diego Cardona [facility] unknown DATE OF SERVICE: 05/13/2018 PROGRESS NOTE/OVERALL PLAN OF CARE SUBJECTIVE: The patient was seen earlier today. He is being monitored regarding his hemoglobin. He is forgetful and needs to be reoriented but appears cooperative. There is involved in physical therapy with transfers that have a mod assist level. In occupational therapy, upper body dressing is min assist, lower body dressing is mod assist. He does have some decreased balance. In speech, he has sweh-yk-pgyieqil cognitive deficits with moderate memory deficits. ASSESSMENT: 1. Acute lacunar cerebrovascular accident. 2. Lumbar radiculopathy with right lower extremity weakness. 3. Metabolic encephalopathy. 4. 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 5. History of mechanical aortic valve replacement. 6. Recurrent falls. 7. Premorbid history of dementia, nevertheless living in the community. 8. Coronary artery disease, status post coronary bypass grafting. 9. Hypertension. 10. Hyperlipidemia. 11. Degenerative joint disease, especially right knee. PLAN: The overall plan of care is based on the preadmission screen, post-admission physician evaluation and information garnered from therapy assessments. 1. Estimated length of stay will be likely at least 2 weeks pending progress. 2. Medical prognosis is reasonably good. 3. Anticipated interventions include the interdisciplinary acute inpatient rehabilitation program with a goal maximizing his functional independence, so he can hopefully return back to his home setting. 4. Anticipated functional outcomes would be for the patient to become modified independent at least at the walker level as well as improvement with mobility, ADLs and cognition, so that he can return back home. 5. Discharge destination would be back to the home setting where he lives with his . 6. Expected therapy by discipline includes PT, [place] [address] REHAB UNIT PLAN OF CARE Name: MANDIE HILL Room #: 515-P [facility] IN [facility].#: [id number] Admission: 05/12/18 Attend Phys: Diego Cardona MD Discharge: 05/23/18 Date of : 36 Report #: [id number] speech 1 hour per day each five days a week throughout the duration of the acute inpatient rehabilitation stay. <ELECTRONICALLY SIGNED> By: Diego Cardona MD 05/25/18 1455 1744 0453 Diego Cardona MD /nt
--- NOTE | ~2018-05-12 | H ---
[facility] [place] [address] HISTORY AND PHYSICAL Name: MANDIE HILL Nikia Room #: PRE IN [facility].#: [id number] Admission: Attend Phys: Diego Cardona MD Discharge: Date of : 36 Report #: [id number] THIS REPORT FOR: //name// CC: Diego Cardona [facility] unknown DATE OF SERVICE: 05/12/2018 HISTORY OF PRESENT ILLNESS: This is an 82-year-old male who initially presented to [facility] with increased confusion and multiple falls from home. He was diagnosed with acute encephalopathy, gait instability and was admitted for further care. During his hospital stay, he developed worsening weakness, and he underwent an MRI of his head that confirmed small acute lacunar infarct within the posterior paramedial right parietal lobe. He was seen by Neurology. He underwent further MRI imaging of the thoracic and lumbar spine. He was found to have lumbar radiculopathy with right lower extremity weakness. The patient has been on Coumadin for aortic valve replacement. His Coumadin dose has been adjusted. Also found to have anemia with the most recent hemoglobin today of 7.0. With further investigation, it was found that the patient has autoimmune hemolytic anemia, for which he follows with Hematology at [facility]. At home, he maintains on prednisone, which he will be started on today. Due to his debility, we are admitting to acute inpatient rehabilitation for physical, occupational and speech therapies. Today, the patient denies acute pain. He denies headache or dizziness. He denies blurred vision. He denies shortness of air, cough or chest pain. He denies nausea or constipation or dysuria. He denies leg swelling. PAST MEDICAL HISTORY: Anemia, open heart surgery in 1999, aortic valve replacement and bypass in 1999. Appendectomy, hernia repair, hypertension, chronic right knee pain, history of lupus. HABITS: The patient is a never smoker. No illicit drug use. Denies alcohol use. SOCIAL HISTORY: The patient lives in a house with his . There are 10 steps inside the home to bedroom and bathroom level. His and him have walkers on each level. Premorbidly, he utilized a front-wheel walker. He was independent with ADLs. His and him share IADLs. He was still driving prior to admission. CODE STATUS: Full code. ALLERGIES: No known drug allergies. CURRENT MEDICATIONS: Include prednisone 50 mg daily, bisacodyl suppository just p.r.n., senna at bedtime p.r.n., magnesium p.r.n., Colace 100 mg twice a day [address] [address] HISTORY AND PHYSICAL Name: MANDIE HILL Room #: PRE IN M.R.#: [id number] Admission: Attend Phys: Diego Cardona MD Discharge: Date of : 36 Report #: [id number] p.r.n., Tylenol 650 q.4 hours p.r.n., iron 325 twice a day with meals, vitamin B12 of 500 mcg daily, losartan 50 mg daily, Coumadin 1.5 mg daily, calcium plus vitamin D one tablet twice a day, finasteride 5 mg daily, aspirin 81 mg daily, Lipitor 20 mg daily, Flomax 0.4 mg daily, trazodone 100 mg at bedtime, fish oil 1000 mg twice a day. Warfarin 5 mg daily in conjunction with 1.5 for a total of 6.5. Lake 1-2 tablets q.4 hours p.r.n., Zofran 4 mg q.4 hours p.r.n., MiraLax 17 grams daily p.r.n. REVIEW OF SYSTEMS: Remainder of his 14-point review of systems negative except as listed in HPI. PHYSICAL EXAMINATION: VITAL SIGNS: 101/61, respirations 17, pulse 77, temperature 97.4, 97% O2 sat on room air. GENERAL: He is awake, alert. He is oriented to person and that he is in the hospital. He is confused on the date. He is a poor historian with recall of medical information. HEENT: Head is normocephalic. Eyes: EOMs are intact. No icterus. ENT has no sinus tenderness, no pharyngitis. CHEST: Lungs are clear to auscultation. No crackles, no wheeze. HEART: Regular rate and rhythm. S1, S2. ABDOMEN: Bowel sounds are positive. Soft, nontender, nondistended. GENITOURINARY: No CVA tenderness. SKIN: He has multiple abrasions to his fingers. EXTREMITIES: UPPER EXTREMITIES:. He has Mepilex to his right upper arm, very thin, frail steroid skin.. He has functional range of motion of bilateral upper and lower extremities. No upper extremity clonus. Lower extremities, able to lift into gravity. No lower extremity edema. Right lower extremity weaker greater than the left. Negative Homans sign. He is transferring with mod assist. He is ambulating with a front wheel walker 75 feet with min assist, toileting with mod assist. Bed mobility, standby assist. NEUROLOGIC: Equal facies, no slurred speech. PSYCHIATRIC: Pleasant affect. LABORATORY DATA: From 05/12/2018, WBC 6.3, hemoglobin 7.0, hematocrit 20.3, platelets 131. Folic acid 28.4. LDH 490. ASSESSMENT: 1. Small acute lacunar cerebrovascular accident. 2. Lumbar radiculopathy with right lower extremity weakness. 3. Metabolic encephalopathy. 4. Autoimmune hemolytic anemia. 5. History of mechanical aortic valve replacement. 6. Recurrent falls. 7. Dementia. 8. Coronary artery disease, status post coronary artery bypass graft. [facility] [place] [address] HISTORY AND PHYSICAL Name: MANDIE HILL Nikia Room #: PRE IN ..#: [id number] Admission: Attend Phys: Diego Cardona MD Discharge: Date of : 36 Report #: [id number] 9. Hypertension. 10. Hyperlipidemia. 11. Degenerative joint disease, especially in the right knee. PLAN: The patient will be admitted to acute inpatient rehabilitation unit for physical, occupational and speech therapies. He will have hospitalist service follow for his acute medical needs. He will also have Dr. Chopra follow along for his anemia and further recommendations. Dr. Mack will manage any further neurological concerns. He will be on a heart healthy diet with supplements twice a day. Dietitian will continue to follow. We will repeat CBC and BMP in the morning. He will have an INR drawn on 05/15. Pharmacy is managing his Coumadin dosage. Please see extensive orders. By: 1533 1653 JANEL Mathias /nt
--- NOTE | ~2018-05-12 | P ---
[facility] [place] [address] PROCEDURE REPORT Name: HILLMANDIE Nikia Room #: 515-P [facility] IN M.R.#: [id number] Admission: 05/12/18 Attend Phys: Diego Cardona MD Discharge: Date of : 36 Report #: [id number] THIS REPORT FOR: //name// CC: Diego Cardona FAM unknown Mandie Chopra MD BRIEF HISTORY: The patient is an 82-year-old male with a history of a hemolytic anemia on steroids, but who has evidence of Hemoccult positive stools and iron deficiency anemia. PREOPERATIVE DIAGNOSES: Hemoccult positive stools and iron deficiency anemia. POSTOPERATIVE DIAGNOSES: 1. Diminutive nonbleeding colon polyps x 2. 2. Mild sigmoid diverticulosis coli. MEDICATIONS: Deep sedation with propofol per anesthesia. SPECIMEN: Cecal polyps. ESTIMATED BLOOD LOSS: 3 mL. PROCEDURE: Colonoscopy to cecum and terminal ileum with biopsy. FINDINGS: Prior to propofol sedation, procedure of colonoscopy was discussed with the patient as well as potential risks and its complications. He indicates he understands and desires to proceed. DESCRIPTION OF PROCEDURE: With the patient in left lateral decubitus position, digital examination was completed, which revealed no abnormalities. Subsequently, Olympus video colonoscope was introduced in the rectum, advanced under direct vision to the cecum. The scope was passed with minimal difficulty in the cecum and also into the distal ileum and a villous pattern was seen. The distal ileum was normal without evidence of ulceration or inflammatory disease. At that point, the scope was slowly withdrawn and careful circumferential views were obtained. Upon slow withdrawal of the scope, the prep was limited. There were pools of liquidy material and some liquid material coating giraldo of the colon. As we withdrew the scope, we extensively irrigated and suctioned. With our efforts, overall an adequate prep was obtained and reasonably good views were obtained. As we withdrew the scope, 2 diminutive polyps seen in the cecum, removed with biopsy forceps. The scope was further withdrawn and the mucosa was normal until the sigmoid colon was reached at which point a few small scattered diverticula were seen. There was no endoscopic evidence of diverticulitis. No bleeding lesions were seen on this examination. Vascular ectasias were not seen. The scope was withdrawn in the rectum and no abnormalities were seen. Upon retroflexion, no abnormalities were seen. Scope was withdrawn. The [address] [address] PROCEDURE REPORT Name: MANDIE HILL Room #: 515-P [facility] IN .R.#: [id number] Admission: 05/12/18 Attend Phys: Diego Cardona MD Discharge: Date of : 36 Report #: [id number] patient tolerated the procedure well. DISPOSITION: The patient with iron deficiency anemia. Colonoscopy revealed 2 diminutive polyps. A definite bleeding source was not identified. We will follow up on the path of the polyps. However, at this point in life, a routine surveillance in 5 years or so would probably be of minimal benefit to the patient. As far as his anemia is concerned, we will follow up on biopsy specimen with regards to biopsies to exclude celiac disease. Please see upper endoscopy report. If anemia continued to be a problem and diagnosis remains elusive, a small bowel capsule study as an outpatient could be considered at a later date. <ELECTRONICALLY SIGNED> By: Forest Salmeron MD 05/16/18 1618 1423 1449 Forest Salmeron MD /nt
--- NOTE | ~2018-05-12 | HC ---
[facility] [place] [address] CONSULTATION Name: MANDIE HILL Room #: 515-P [facility] IN ..#: [id number] Admission: 05/12/18 Attend Phys: Diego Cardona MD Discharge: Date of : 37 Report #: [id number] THIS REPORT FOR: //name// CC: Diego Cardona [facility] unknown DATE OF SERVICE: 05/19/2018 CHIEF COMPLAINT: Traumatic wound to the right elbow. HISTORY OF PRESENT ILLNESS: This is an 82-year-old male patient who I was asked to see with regard to a traumatic wound to his right elbow. He apparently fell and struck his elbow and had a primary repair performed approximately 10-14 days ago. He was admitted with increased confusion and multiple falls and diagnosed with some encephalopathy and some premorbid dementia. He denies significant pain at this time and states he is feeling quite a bit better. PAST MEDICAL HISTORY: The patient's past medical history is positive for coronary artery bypass surgery in 1999 and valve replacement, history of appendectomy and history of lupus. ALLERGIES: None. MEDICATIONS: Reviewed on his AUG. FAMILY HISTORY: Noncontributory. SOCIAL HISTORY: Negative for alcohol or tobacco use. The patient does live with his at home. REVIEW OF SYSTEMS: CONSTITUTIONAL: The patient denies fever, chills or weight loss. NEUROLOGICAL: The patient denies focal weakness. ENT: The patient denies earache, nasal drainage or sore throat. CARDIOVASCULAR: The patient denies chest pain, palpitations or diaphoresis. PULMONARY: The patient denies cough or shortness of breath. GASTROINTESTINAL: The patient denies nausea, vomiting or abdominal pain. ORTHOPEDIC: The patient does note a traumatic wound to his right elbow. Other systems in a 14-point review of systems are negative. PHYSICAL EXAMINATION: VITAL SIGNS: At this time include pulse 58, respiratory rate of 18, blood pressure 121/58 and temperature 98.4. GENERAL: This is a chronically ill-appearing male patient who appears to be in minimal distress. HEENT: Head is normocephalic. Nose and throat are clear. [address] [address] CONSULTATION Name: MANDIE HILL Nikia Room #: 515-P [facility] IN M.R.#: [id number] Admission: 05/12/18 Attend Phys: Diego Cardona MD Discharge: Date of : 36 Report #: [id number] NECK: Supple. LUNGS: Clear. ABDOMEN: Soft. Bowel sounds present. EXTREMITIES: Demonstrate trace edema to the lower extremities. He has a laceration to his right elbow. It is slightly . There are some, what appeared to be, absorbable sutures in place, although they are not really holding anything together at this point. I have removed the sutures and have picked away some of the crusty material, revealing a fairly clean wound. The skin edges are not well opposed, however, but the existing wound is clean and granulating. There is some slight puffiness and some erythema surrounding. NEUROLOGIC: The patient is alert and does move all 4 extremities spontaneously. LABORATORY DATA: Includes sodium 132, potassium 4.5, chloride 101, CO2 of 22, BUN 34, creatinine 1.0 and glucose 149. Total protein 6.0. Albumin is low at 2.5. White blood cell count is 8.9 with a hemoglobin of 7.3. CLINICAL IMPRESSION: 1. Traumatic wound to the right elbow following a fall and subsequent primary repair, sutures removed today. 2. Generalized deconditioning, currently undergoing physical therapy. 3. Autoimmune hemolytic anemia. 4. History of small lacunar infarction. 5. Hyperglycemia. RECOMMENDATIONS: At this point in time, once again sutures have been removed from the elbow. We will dress this with MediHoney and a bordered foam will be left in place for the next 48 hours. Hopefully, this will soften some of the slough in the base and I think this will go on to do well. We will continue to follow closely while here. I appreciate being asked to see him in consultation. <ELECTRONICALLY SIGNED> By: Chintan Hayes MD 05/22/18 0754 [id number] Chintan Hayes MD /nt
--- NOTE | ~2018-05-12 | H ---
[facility] [place] [address] HISTORY AND PHYSICAL Name: MANDIE HILL Room #: 515-P ADM IN .R.#: [id number] Admission: 05/12/18 Attend Phys: Diego Cardona MD Discharge: Date of : 36 Report #: [id number] THIS REPORT FOR: //name// CC: Diego Cardona [facility] unknown DATE OF SERVICE: 05/12/2018 POSTADMISSION PHYSICIAN EVALUATION HISTORY OF PRESENT ILLNESS: The patient is an 82-year-old white male admitted for acute in-hospital inpatient rehabilitation. He was initially admitted to [facility] with increased confusion and multiple falls. He was diagnosed with an acute encephalopathy, gait instability. He was noted to have worsening weakness during his hospital stay and an MRI of the brain confirmed a small acute lacunar infarct within the posterior paramedial right parietal lobe. He was seen by Neurology. Further MRI imaging of the thoracic and lumbar spine was performed and he was found to have a lumbar radiculopathy with right lower extremity weakness. The patient has been on Coumadin for an aortic valve replacement. 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 At home, he had been maintained on prednisone and that was started earlier today. With these multiple medical issues and with the newly-diagnosed CVA as well as the lumbar radiculopathy and the prior encephalopathy, he has been admitted for acute in-hospital inpatient rehabilitation. Please see the full history and physical by Danielle Berry, nurse practitioner. This includes prior medical history, habits, social history, code status, and allergies. As far as medications, please see the full medication listing. This includes vitamins, herbals, and supplements. REVIEW OF SYSTEMS: No current complaints of chest pain, shortness of breath or abdominal discomfort. He has some discomfort in low back and right lower extremity with the lumbar radiculopathy. PHYSICAL EXAMINATION: GENERAL: He is an 82-year-old white male of slender built, no obvious distress. Some latency to his responses. He is able to follow basic 1 step commands. He is oriented to person, knows he is in the hospital. Limited historian as far as his basic medical issues. VITAL SIGNS: As noted. HEENT: Appeared to be benign. CHEST: Sounded clear to auscultation. CARDIOVASCULAR: Regular rate and rhythm. He can hear the click from his heart valve. [facility] [address] [place] [address] HISTORY AND PHYSICAL Name: MANDIE HILL Room #: 515-P [facility] IN [facility]#: [id number] Admission: 05/12/18 Attend Phys: Diego Cardona MD Discharge: Date of : 36 Report #: [id number] ABDOMEN: Bowel sounds positive, nontender. GENITOURINARY AND RECTAL: Deferred. EXTREMITIES: Functional range of motion of both upper and lower extremities. No obvious clonus. Strength is probably a grade 3+ to 4-/5, although he favors moving the right leg some. Right lower extremity does appear weaker than the left, probably a grade 3+/5. He does need mod assist with basic transfers and has been ambulating short distances with min assist. ASSESSMENT: 1. Small acute lacunar cerebrovascular accident. 2. Lumbar radiculopathy with right lower extremity weakness. 3. Metabolic encephalopathy. 4. Autoimmune hemolytic anemia. 5. History of mechanical aortic valve replacement. 6. Recurrent falls. 7. Premorbid history of dementia. 8. Coronary artery disease, status post coronary artery bypass grafting. 9. Hypertension. 10. Hyperlipidemia. 11. Degenerative joint disease, especially in the right knee. PLAN: The patient is admitted for acute in-hospital inpatient rehabilitation. From a postadmission physician evaluation perspective, there are no relevant changes since the preadmission screening. Please see the above review of prior and current medical and functional conditions and comorbidities. Please see the patient's previous and current functional status. As far as risk of complications, the patient does have multiple medical comorbidities as noted above. We will have the multiple professional benefits sales consultant physicians continue to follow. As far as initial plan of care, this will involve the interdisciplinary acute inpatient rehabilitation program with the goal of maximizing his functional independence, so he can hopefully return back to his prior living situation. We will have PT, OT, speech rehab nursing assisting regarding medication management, skin care prophylaxis, bowel and bladder issues and nursing education. requirements manager will be involved as well as the interdisciplinary acute rehabilitation team. Measurable functional goals would be for him to become modified independent at a walker level with basic mobility and ADLs as well as improvement in cognition. Prognosis is reasonably good with estimated length of stay probably at least 2 weeks and likely longer. Potential barriers would include his multiple medical comorbidities and decreased functional status. The patient meets diagnostic criteria for an acute in-hospital inpatient rehabilitation stay. He meets the medical necessity criteria. We will have the multiple medical physicians and consultants continue to follow with him while he [facility] [address] [place] [address] HISTORY AND PHYSICAL Name: MANDIE HILL Room #: 515-P ADM IN M.R.#: [id number] Admission: 05/12/18 Attend Phys: Diego Cardona MD Discharge: Date of : 36 Report #: [id number] is on rehabilitation. He does have the tolerance for therapies and has appropriate discharge goals back to the home setting. <ELECTRONICALLY SIGNED> By: Diego Cardona MD 05/19/18 1031 2037 [id number] Diego Cardona MD /[facility]
--- NOTE | ~2018-05-12 | P ---
[facility] [place] [address] PROCEDURE REPORT Name: HILLMANDIE Nikia Room #: 515-P [facility] IN ..#: [id number] Admission: 05/12/18 Attend Phys: Diego Cardona MD Discharge: Date of : 36 Report #: [id number] THIS REPORT FOR: //name// CC: Diego Cardona [facility] unknown Mandie Chopra MD BRIEF HISTORY: The patient is an 82-year-old male who has a history of a hemolytic anemia, but is now found to have evidence of iron deficiency. He has significant anemia requiring transfusion and does have Hemoccult positive stools. PREOPERATIVE DIAGNOSES: Anemia and Hemoccult-positive stools. POSTOPERATIVE DIAGNOSES: 1. Gastritis with few erosions. 2. A 5-cm sliding type hiatus hernia. 3. Erosive esophagitis. 4. Small esophageal diverticulum. MEDICATIONS: Deep sedation with propofol per anesthesia. SPECIMENS: 1. Small bowel biopsies to rule out celiac disease. 2. Biopsies of gastritis. ESTIMATED BLOOD LOSS: 3 mL. PROCEDURE: EGD with biopsy, Schwab dilation. FINDINGS: Prior to propofol sedation, procedure of upper endoscopy was discussed with the patient as well as potential risks and its complications. He indicates he understands and desires to proceed. DESCRIPTION OF PROCEDURE: With the patient in left lateral decubitus position, the Olympus video endoscope was inserted in the cervical esophagus under direct vision without difficulty. Examination of this organ through its entire length revealed normal esophageal mucosa down to the squamocolumnar junction. In the distal esophagus, a shallow small esophageal diverticulum was seen. Just beyond the squamocolumnar junction was seen and was narrowed consistent with a ring at the level of the GE junction. It was modestly tight, but the scope did pass easily through the ring. The scope was advanced into a moderately large hiatus hernia in the range of about 5 cm. The mucosa in the hernia was unremarkable. No evidence of bleeding lesions. Upon retroflexion, no additional lesions were seen in the hernia. Scope was advanced in the distal stomach, which was examined on end view as well as retroflexed views. There was a diffuse gastritis, but no evidence of ulcers or bleeding. Biopsies were obtained to [address] [address] PROCEDURE REPORT Name: MANDIE HILL Nikia Room #: 515-P [facility] IN ..#: [id number] Admission: 05/12/18 Attend Phys: Diego Cardona MD Discharge: Date of : 36 Report #: [id number] evaluate for H. pylori. Upon retroflexion, the hiatus hernia was seen. No other abnormalities were identified. The pylorus was normal. Duodenal bulb was normal. Duodenal sweep was normal. Multiple biopsies were obtained to evaluate for celiac disease. At that point, the scope was slowly withdrawn and careful circumferential views confirmed the above findings. The patient tolerated the procedure well. DISPOSITION: The patient with iron deficiency anemia and Hemoccult-positive stools. He does have esophagitis. He would benefit from PPI at least on a short-term basis. He does have hiatus hernia, but no ulcers or bleeding lesions were seen. We will follow up on biopsies and proceed with colonoscopy at this time. <ELECTRONICALLY SIGNED> By: Forest Salmeron MD 05/16/18 1618 1341 1411 Forest Salmeron MD /nt
[~2018-05-12 15:17] MED LIST changes: +MIRALAX17 GM PO; +PREDNISONE 20 M20 MG PO
[2018-05-12 20:10] VITALS: BP 116/57
[2018-05-12 20:23] VITALS: BP 116/57
[2018-05-13 06:01] LABS: MCH 32.9 pg (26.0-34.0); RBC 2.11 mil/uL (4.50-6.00); RDW 15.5 % (10.5-14.5); WBC 5.8 thou/uL (4.0-11.0)
[2018-05-13 06:03] LABS: HEMATOCRIT 19.9 % (42.0-52.0)
[2018-05-13 06:17] LABS: CALCIUM 8.3 mg/dL (8.5-10.1); POTASSIUM 4.4 mmol/L (3.5-5.1)
[2018-05-13 12:49] LABS: INR 2.4
[2018-05-13 20:45] VITALS: BP 117/58
[2018-05-14 04:14] LABS: BASOPHILS 0.1 % (0.0-2.0); LYMPHOCYTES 3.1 % (24.0-44.0); MCH 31.9 pg (26.0-34.0); MCHC 33.8 g/dL (28.0-37.0); MCV 94.2 fL (80.0-100.0); MONOCYTES 5.7 % (1.0-8.0); PLATELET COUNT 193 thou/uL (150-400); POLYS 91.1 % (36.0-66.0); RBC 1.88 mil/uL (4.50-6.00); RDW 15.5 % (10.5-14.5); WBC 7.7 thou/uL (4.0-11.0)
[2018-05-14 04:18] LABS: HEMATOCRIT 17.7 % (42.0-52.0)
[2018-05-14 04:22] LABS: INR 2.7; PROTIME 28.5 Seconds (9.3-11.4)
[2018-05-14 06:42] VITALS: BP 120/59; BP 133/63
[2018-05-14 07:40] VITALS: BP 123/71
[2018-05-14 08:39] LABS: ALBUMIN 2.4 g/dL (3.4-5.0); DIRECT BILIRUBIN 0.2 mg/dL (<0.1-0.3); TOTAL BILIRUBIN 0.6 mg/dL (<0.1-1.0); TOTAL PROTEIN 5.4 g/dL (6.4-8.2)
[2018-05-14 09:48] VITALS: BP 120/59
[2018-05-14 19:38] VITALS: BP 132/59
[2018-05-15 05:47] LABS: HEMATOCRIT 20.5 % (42.0-52.0); MCH 31.9 pg (26.0-34.0); MCHC 34.3 g/dL (28.0-37.0); MCV 92.9 fL (80.0-100.0); RBC 2.21 mil/uL (4.50-6.00); RDW 15.7 % (10.5-14.5); WBC 9.7 thou/uL (4.0-11.0)
[2018-05-15 05:58] LABS: INR 2.5; PROTIME 25.7 Seconds (9.3-11.4)
[2018-05-15 20:55] VITALS: BP 143/63
[2018-05-16 05:42] LABS: HEMATOCRIT 22.4 % (42.0-52.0); HEMOGLOBIN 7.6 gm/dL (14.0-18.0); RBC 2.39 mil/uL (4.50-6.00); WBC 8.6 thou/uL (4.0-11.0)
[2018-05-16 05:59] LABS: INR 1.6; PROTIME 16.4 Seconds (9.3-11.4)
[2018-05-16 08:21] LABS: CALCIUM 8.7 mg/dL (8.5-10.1); CREATININE 0.9 mg/dL (0.7-1.3); MAGNESIUM 2.3 mg/dL (1.8-2.4); POTASSIUM 4.9 mmol/L (3.5-5.1)
[2018-05-16 09:18] LABS: ALBUMIN 2.5 g/dL (3.4-5.0); DIRECT BILIRUBIN 0.2 mg/dL (<0.1-0.3); TOTAL BILIRUBIN 0.6 mg/dL (<0.1-1.0)
[2018-05-16 09:46] VITALS: BP 140/77
[2018-05-16 14:21] LABS: CHOLESTEROL 176 mg/dL (<200); HDL CHOLESTEROL 45 mg/dL (>40); LDL CHOLESTEROL 112 mg/dL (<100); TC:HDL 3.9 Ratio (Not establshd); TRIGLYCERIDE 95 mg/dL (<150); VLDL 19 mg/dL (<40)
[2018-05-16 15:11] VITALS: BP 137/72
[2018-05-16 20:00] VITALS: BP 132/69
[2018-05-17 03:56] LABS: POTASSIUM 4.5 mmol/L (3.5-5.1)
[2018-05-17 04:01] LABS: INR 1.4; PROTIME 14.6 Seconds (9.3-11.4)
[2018-05-17 04:42] LABS: ABSOLUTE NEUTROPHILS 7.8 thou/uL (1.4-8.2); BASOPHILS 0.1 % (0.0-2.0); HEMATOCRIT 23.7 % (42.0-52.0); LYMPHOCYTES 2.1 % (24.0-44.0); MCHC 33.6 g/dL (28.0-37.0); MCV 95.3 fL (80.0-100.0); MONOCYTES 2.6 % (1.0-8.0); PLATELET COUNT 318 thou/uL (150-400); POLYS 95.2 % (36.0-66.0); RBC 2.49 mil/uL (4.50-6.00); RDW 15.8 % (10.5-14.5); WBC 8.2 thou/uL (4.0-11.0)
[2018-05-17 09:41] VITALS: BP 143/89
[2018-05-17 19:16] VITALS: BP 108/54
[2018-05-18 05:58] LABS: HEMATOCRIT 21.3 % (42.0-52.0); HEMOGLOBIN 7.2 gm/dL (14.0-18.0); MCH 32.3 pg (26.0-34.0); MCHC 33.9 g/dL (28.0-37.0); MCV 95.2 fL (80.0-100.0); RBC 2.24 mil/uL (4.50-6.00); RDW 16.1 % (10.5-14.5); WBC 8.9 thou/uL (4.0-11.0)
[2018-05-18 05:59] LABS: INR 1.5; PROTIME 16.1 Seconds (9.3-11.4)
[2018-05-18 08:28] VITALS: BP 133/62
[2018-05-18 15:19] LABS: ABSOLUTE RETIC COUNT 0.1689 10^6/uL; OBSERVED RETIC COUNT 7.4 % (0.6-2.6)
[2018-05-18 20:05] VITALS: BP 135/66
[2018-05-19 06:09] LABS: HEMATOCRIT 21.3 % (42.0-52.0); HEMOGLOBIN 7.3 gm/dL (14.0-18.0)
[2018-05-19 06:16] LABS: INR 1.6; PROTIME 16.2 Seconds (9.3-11.4)
[2018-05-19 21:27] VITALS: BP 121/58
[2018-05-20 05:36] LABS: INR 1.5; PROTIME 15.3 Seconds (9.3-11.4)
[2018-05-20 05:44] LABS: ALBUMIN 2.4 g/dL (3.4-5.0); DIRECT BILIRUBIN 0.1 mg/dL (<0.1-0.3); TOTAL BILIRUBIN 0.5 mg/dL (<0.1-1.0); TOTAL PROTEIN 5.3 g/dL (6.4-8.2)
[2018-05-20 08:15] VITALS: BP 144/61
[2018-05-20 19:53] VITALS: BP 118/62
[2018-05-21 07:07] LABS: INR 1.5; PROTIME 15.3 Seconds (9.3-11.4)
[2018-05-21 08:30] VITALS: BP 146/66
[2018-05-21 20:13] VITALS: BP 131/77
[2018-05-22 04:08] LABS: HEMATOCRIT 25.1 % (42.0-52.0); HEMOGLOBIN 8.3 gm/dL (14.0-18.0); MCH 32.2 pg (26.0-34.0); MCHC 33.2 g/dL (28.0-37.0); MCV 97.1 fL (80.0-100.0); RBC 2.58 mil/uL (4.50-6.00); RDW 17.7 % (10.5-14.5)
[2018-05-22 04:21] LABS: INR 1.6; PROTIME 16.4 Seconds (9.3-11.4)
[2018-05-22 19:15] VITALS: BP 113/58
[2018-05-23 03:45] LABS: INR 1.6; PROTIME 16.4 Seconds (9.3-11.4)
[2018-05-23 07:14] LABS: GLOBULIN TOTAL 2.1 g/dL (2.2-3.9); M-SPIKE Not Observed g/dL (Not Observed)
[2018-05-23 08:19] VITALS: BP 155/68
[2018-05-23] MEDS ORDERED: COUMADIN 4 MG TA4 M1 PO ×2 (09:36→10:04)
[2018-05-23] MEDS ORDERED: PROTONIX40 M1 PO ×2 (09:36→10:04)
[2018-05-23] MEDS ORDERED: PREDNISONE 10 M10 MG PO ×2 (10:01→10:04)
[2018-05-23] MEDS ORDERED: COLACE100 MG PO (10:08)
[2018-05-23] MEDS ORDERED: MIRAPEX0.5 MG PO (10:10)
[2018-05-23] MEDS ORDERED: APAP W/CODEINE1 TA2 PO (10:14)
[2018-05-23 10:43] VITALS: BP 155/68
[2018-05-23 11:22] VITALS: BP 155/68
[2018-05-23 14:43] VITALS: BP 155/68
== END 2018-05-23 15:59 | disposition home health service (06) | DRG 64 ==
LOC: ENTRNSPT 05-23 15:25 → EDTRNSPTSTS 05-23 15:28
PROVIDERS: Hospitalist; Internal Medicine; Internal Medicine Hematology & Oncology; Nurse Practitioner; Nurse Practitioner Acute Care; Nurse Practitioner Family; Physical Medicine & Rehabilitation; Specialist
DX: I63.89 Other cerebral infarction (principal); G93.41 Metabolic encephalopathy; K22.11 Ulcer of esophagus with bleeding; K25.4 Chronic or unspecified gastric ulcer with hemorrhage; K57.31 Diverticulosis of large intestine without perforation or abscess with bleeding; D59.1 Other autoimmune hemolytic anemias; E44.0 Moderate protein-calorie malnutrition; Z68.1 Body mass index [BMI] 19.9 or less, adult; M54.16 Radiculopathy, lumbar region; R29.6 Repeated falls; F03.90 Unspecified dementia, unspecified severity, without behavioral disturbance, psychotic disturbance, mood disturbance, and anxiety; I25.10 Atherosclerotic heart disease of native coronary artery without angina pectoris; Z95.1 Presence of aortocoronary bypass graft; E78.5 Hyperlipidemia, unspecified; M17.11 Unilateral primary osteoarthritis, right knee; Z95.2 Presence of prosthetic heart valve; I95.9 Hypotension, unspecified; Z79.01 Long term (current) use of anticoagulants; Z90.49 Acquired absence of other specified parts of digestive tract; I10 Essential (primary) hypertension; G89.29 Other chronic pain; Z79.899 Other long term (current) drug therapy; S50.901A Unspecified superficial injury of right elbow, initial encounter; W19.XXXA Unspecified fall, initial encounter; Y93.89 Activity, other specified; Y92.89 Other specified places as the place of occurrence of the external cause; Y99.8 Other external cause status; R73.9 Hyperglycemia, unspecified; K44.9 Diaphragmatic hernia without obstruction or gangrene; K22.5 Diverticulum of esophagus, acquired; K63.5 Polyp of colon; D12.0 Benign neoplasm of cecum; M19.90 Unspecified osteoarthritis, unspecified site; M48.00 Spinal stenosis, site unspecified; D51.9 Vitamin B12 deficiency anemia, unspecified; K22.2 Esophageal obstruction; N40.0 Benign prostatic hyperplasia without lower urinary tract symptoms; M70.21 Olecranon bursitis, right elbow
CPT/HCPCS: 10112; 62110; 62900; 70005

== ENCOUNTER 2018-10-08 17:12 | Emergency (ER) | payer OTHER ==
[~2018-10-08] VITALS: Ht 180.3 cm; Wt 67.1 kg
[~2018-10-08 17:12] MED LIST changes: +APAP W/CODEINE1 TA2 PO; +COUMADIN 4 MG TA4 M1 PO; +MIRAPEX0.5 MG PO; +PREDNISONE 10 M10 MG PO; +PROTONIX40 M1 PO
[2018-10-08 18:03] LABS: HEMOGLOBIN 10.6 gm/dL (14.0-18.0); MCH 31.1 pg (26.0-34.0); MCV 91.5 fL (80.0-100.0); PLATELET COUNT 179 thou/uL (150-400); RBC 3.39 mil/uL (4.50-6.00); RDW 16.2 % (10.5-14.5); WBC 4.6 thou/uL (4.0-11.0)
[2018-10-08 18:16] LABS: CALCIUM 9.3 mg/dL (8.5-10.1); CREATININE 1.2 mg/dL (0.7-1.3); POTASSIUM 4.1 mmol/L (3.5-5.1)
[2018-10-08 18:17] LABS: APTT 74.4 Seconds (24.5-32.8); PROTIME 20.9 Seconds (9.3-11.4)
[2018-10-08 18:18] LABS: URINE BILIRUBIN NEGATIVE (Negative); URINE BLOOD 2+ (Negative); URINE CLARITY CLEAR; URINE COLOR YELLOW; URINE GLUCOSE-RANDOM* NEGATIVE (Negative); URINE KETONES NEGATIVE (Negative); URINE LEUKOCYTES NEGATIVE (Negative); URINE NITRITE NEGATIVE (Negative); URINE PROTEIN (DIPSTICK) 1+ (Negative); URINE UROBILINOGEN 0.2 E.U./dl (0.2-1.0)
[2018-10-08 18:23] LABS: ABSOLUTE NEUTROPHILS 3.1 thou/uL (1.4-8.2)
[2018-10-08 18:25] LABS: ANISOCYTOSIS 1+; TROPONIN-I 0.12 ng/mL (<0.06)
[2018-10-08 18:25] LABS: BACTERIA None Seen /HPF (None Seen); CASTS None Seen /LPF (None Seen); CRYSTALS None Seen /LPF (None Seen); SQUAMOUS None Seen /LPF (0-3); URINE RBC 0-2 Rare /HPF (0-2); URINE WBC None Seen /HPF (0-5)
[2018-10-08 18:26] LABS: AMORPHOUS URATES Few /LPF (None Seen)
[2018-10-08] MEDS ORDERED: COUMADIN 5 MG TA5 M1 PO (18:46)
[2018-10-08 19:11] VITALS: BP 148/57
[2018-10-08 19:29] LABS: POC CA IONIZED 4.7 mg/dL (4.5-5.3); POC HEMOGLOBIN 9.2 g/dL (14.0-18.0); POC POTASSIUM 3.8 mmol/L (3.5-5.1)
--- NOTE | 2018-10-09 07:52 | EKG ---
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: lori : 1935 Requested By: Mimi Rodriguez Order Number: [id number] MD: Gurmeet Cantu Measurements Intervals [place] Rate: 62 P: -90 [place]: 151 QRS: 67 QRSD: 155 T: 122 QT: 473 QTc: 481 Interpretive Statements Ectopic atrial rhythm Left bundle branch block Compared to ECG 05/07/2018 14:03:17 Ectopic atrial rhythm now present atrial premature complexes no longer present Electronically Signed On 10-09-2018 7:52:43 CDT by Gurmeet Cantu [email or web address] ��������������������������������������������� <ELECTRONICALLY SIGNED> ���������������������������������������� By: Gurmeet Cantu MD, [facility] ��������������������������������������������� 10/09/18 0752 1829 1829 Gurmeet Cantu MD, [facility] /EPI
== END 2018-10-08 19:20 | disposition short-term general hospital (02) ==
LOC: ER 17:12
PROVIDERS: Student in an Organized Health Care Education/Training Program
DX: I61.8 Other nontraumatic intracerebral hemorrhage (principal); Z79.01 Long term (current) use of anticoagulants; I10 Essential (primary) hypertension; F03.90 Unspecified dementia, unspecified severity, without behavioral disturbance, psychotic disturbance, mood disturbance, and anxiety; Z90.49 Acquired absence of other specified parts of digestive tract